=== PATIENT | female | born 1940 | race Hispanic/Latino ===

== ENCOUNTER 2021-02-28 07:39 | Outpatient (CLI) | payer OTHER, SELFPAY ==
--- NOTE | ~2021-02-28 | MM_ITS ---
EXAMINATION: MM screening beth BI w lit HISTORY: Screening mammogram TECHNIQUE: Craniocaudal and mediolateral oblique 3-D tomosynthesis images were obtained and synthetic 2-D images were generated. CAD analysis was submitted and interpreted. COMPARISON: No prior mammogram is available for comparison at this institution. BREAST PARENCHYMAL COMPOSITION: There are scattered areas of fibroglandular density. FINDINGS: There is no evidence of suspicious mass, calcification, or architectural distortion to sugg est malignancy in either breast. There has been no suspicious interval change. IMPRESSION: 1. No mammographic evidence of malignancy. 2. Recommend routine screening mammography in one year. BI-RADS Category 1: Negative Reviewed, dictated and finalized at location A.
--- NOTE | ~2021-02-28 | DEXA_ITS ---
Bone Density Report Name: Lauryn Rosales Age: 80 Sex: Female Ethnicity: Date of : 1940 Indication: postmenopausal; height loss; hysterectomy; Referring Provider: Leda Oropeza Study: Bone densitometry was performed. Exam Date: February 28, 2021 Accession number: [id number] Bone Density: Region BMD T-score Z-score Classification AP Spine (L2, L3) 0.800 -2.3 0.4 Osteopenia Femoral Neck (Left) 0.595 -2.3 0.0 Osteopenia Total Hip (Left) 0.772 -1.4 0.7 Osteopenia Total Hip Bilateral Avg 0.725 -1.8 0.3 Osteopenia Femoral Neck (Right) 0.603 -2.2 0.0 Osteopenia Total Hip (Right) 0.678 -2.2 0.0 Osteopenia World Health Organization criteria for BMD impression classify patients as: Normal (T-score at or above -1.0), Osteopenia (T-score between -1.0 and -2.5), or Osteoporosis (T-score at or below -2.5). 10-year Fracture Risk(1): Major Osteoporotic Fracture 9.7% Hip Fracture 3.0% Reported Risk Factors: [place] (), Neck BMD=0.595, BMI=33.2 (1) FRAX(R) Version 3.08. Fracture probability calculated for an untreated patient. Fracture probability may be lower if the patient has received treatment. Clinical Information Provided by Patient: Has used the following medications: Vitamin D, Calcium Has the following medical conditions: Hysterectomy Patient maximum height was 61 Menopause Age: 49 No regular weight bearing exercise Drinks caffeinated beverages Onset of menses at age 12 Number of children 6 Impression: The patient has low bone mass, based on the Total Spine T-score. The patient has an estimated ten-year risk of hip fracture of 3% and an estimated ten-year risk of major fracture of 9.7%, based on the WHO FRAX algorithm. Discussion: BONE DENSITY IS LOW AT ONE OR MORE SKELETAL SITES. THE PATIENT'S BMD AND CLINICAL RISK FACTORS CONTRIBUTE TO THIS PATIENT'S INCREASED RISK OF FRACTURE. This patient's lowest T-score is low at one or more skeletal sites. It meets the World Health Organization's (WHO) criteria for ?low bone mass? (T-score between -1.0 and -2.5). The patient's 10-year risk of hip fracture as calculated by FRAX exceeds the threshold where pharmacological therapy is recommended by the National Osteoporosis Foundation (NOF). However, all treatment decisions require clinical judgment and consideration of individual patient factors, including patient preferences, comorbidities, previous drug use, risk factors not captured in the FRAX model (e.g., frailty, falls, vitamin D deficiency, increased bone turnover, interval significant decline in bone density) and possible under or overestimation of fracture risk by FRAX. The patient should follow a healthful lifestyle (good nutrition with adequate calcium and vitamin D, and appropriate weight-bearing exercise). Follow-Up: Conside
== END 2021-02-28 07:40 | disposition home or self-care (01) ==
LOC: ANHIMG 07:40
PROVIDERS: PCP Family Medicine; Visit Provider Family Medicine
DX: Z12.31 Encounter for screening mammogram for malignant neoplasm of breast (principal); Z78.0 Asymptomatic menopausal state; M85.88 Other specified disorders of bone density and structure, other site; M85.852 Other specified disorders of bone density and structure, left thigh; M85.851 Other specified disorders of bone density and structure, right thigh
CPT/HCPCS: 77063; 77067; 77080

== ENCOUNTER 2021-03-27 13:20 | Outpatient (CLI) | payer OTHER, SELFPAY ==
--- NOTE | 2021-03-27 13:27 | ECHO_ITS ---
Patient Info Name: Lauryn Garcia Age: 80 years : 1940 Gender: Female Ht: 60 in Wt: 173 lbs BSA: 1.86 m2 HR: 45 bpm BP: 162 / 73 mmHg Technical Quality: Fair Exam Date: 03/27/2021 1:31 PM Exam Location: [facility] Patient Status: Outpatient Admit Date: 03/27/2021 Staff Ordering Physician: Ramses Carballo DO Linseed Cake Trimmer: Heidi Flores RDCS Attending Provider: Ramses Carballo DO Referring Physician: Haris LARIOS; Exam Type: CA echo doppler color flow Study Info Indications R00.1 - Bradycardia, unspecified Complete two-dimensional, color flow and Doppler transthoracic echocardiogram is performed. Summary 1. Complete two-dimensional, color flow and Doppler transthoracic echocardiogram is performed. 2. Left ventricular chamber dimension is normal. 3. Left ventricular systolic function is normal, estimated at 60-65%. 4. There is mildly increased left ventricular wall thickness. 5. The left ventricular diastolic function is grade I diastolic dysfunction. 6. E/e' 16 is elevated. 7. Global longitudinal strain is abnormal at -11.4%. 8. There is mild aortic valve sclerosis. 9. There is trace tricuspid valve regurgitation. 10. No pulmonary hypertension, estimated pulmonary arterial systolic pressure is 28 mmHg. 11. There is small right sided pericardial effusion. Left Ventricle E/e' 16 is elevated. Global longitudinal strain is abnormal at -11.4%. Left ventricular chamber dimension is normal. Left ventricular systolic function is normal, estimated at 60-65%. There is mildly increased left ventricular wall thickness. The left ventricular diastolic function is grade I diastolic dysfunction. Right Ventricle Right ventricular chamber dimension is normal. Right ventricular systolic function is normal. Left Atria Left atrial chamber dimension is normal. Right Atria Right atrial chamber dimension is normal. Aortic Valve The aortic valve is trileaflet. There is mild aortic valve sclerosis. There is no aortic valve stenosis. There is no aortic valve regurgitation. Pulmonic Valve There is no pulmonic regurgitation. Mitral Valve There is no mitral valve stenosis. There is no mitral valve regurgitation. Tricuspid Valve There is trace tricuspid valve regurgitation. No pulmonary hypertension, estimated pulmonary arterial systolic pressure is 28 mmHg. Pericardium/Pleural There is small right sided pericardial effusion. No pericardial tamponade. Inferior Vena Cava Normal inferior vena cava with >50% collapse upon inspiration consistent with normal right atrial pressure, 5 mmHg. Aorta The aortic root size at the sinus of Valsalva is normal. Left Ventricular Outflow Tract Name Value Normal LVOT 2D LVOT Diameter 2.0 cm LVOT Doppler LVOT Peak Gradient 4 mmHg LVOT Mean Gradient 2 mmHg LVOT VTI 25 cm LVOT VTI/AV VTI Ratio 0.9 LVOT Stroke Volume 80 ml LVOT CO 3.6 l/min LVOT C
== END 2021-03-27 13:21 | disposition home or self-care (01) ==
LOC: ANHCARD 13:24
PROVIDERS: PCP Family Medicine; Visit Provider Internal Medicine Cardiovascular Disease
DX: R00.1 Bradycardia, unspecified (principal); I35.1 Nonrheumatic aortic (valve) insufficiency; I31.3 Pericardial effusion (noninflammatory)
CPT/HCPCS: 93306

== ENCOUNTER 2021-10-19 08:52 | Outpatient (CLI) | payer OTHER, SELFPAY ==
--- NOTE | ~2021-10-19 | NM_ITS ---
EXAMINATION: NM niharika stress w perfusion DATE: 10/19/2021 11:17 INDICATION: Dyspnea on exertion. TECHNIQUE: Rest images were obtained following intravenous administration of 10.9 mCi Tc99m tetrofosm in (Myoview). The patient was infused intravenously with Lexiscan (regadenoson). Then, 34.2 mCi Tc99m tetrofosmin (Myoview) was administered intravenously, and stress images were obtained. Data was joselyn nstructed into short axis and horizontal and vertical long axis SPECT images. Gated SPECT images were also obtained. COMPARISON: None. FINDINGS: There is no definite reversible or fixed perfusion abnormality to suggest ischemia or infar ction. There is no segmental wall motion abnormality. Left ventricular ejection fraction measures 6 8%. IMPRESSION: 1. No definite ischemia or infarct. 2. Normal left ventricular ejection fraction measuring 68%. Reviewed, dictated and finalized at location A.
--- NOTE | 2021-10-19 09:46 | EST_ITS ---
Patient Info Name: Lauryn Garcia Age: 81 years : 1940 Gender: Female Ht: 60 in Wt: 165 lbs BSA: 1.81 m2 HR: 46 bpm BP: 141 / 69 mmHg Heart Rhythm: Sinus Rhythm Exam Date: 10/19/2021 9:57 AM Exam Location: [facility] Stress Patient Status: Outpatient Admit Date: 10/19/2021 Staff Ordering Physician: Ramses Carballo DO Attending Provider: Ramses Carballo DO Exercise Technologist: Jessica Agee CT Exam Type: CA stress niharika w NM Study Info Indications R06.00 - Dyspnea, unspecified A regadenoson stress test was performed. Summary 1. 1. Negative lexiscan stress test for ischemic ST changes by ECG criteria. 2. 2. Baseline hypertension. 3. 3. Nuclear scan to follow and will be reported separately. Please correlate with it. 4. 4. Patient informed of the above results. Protocol: Lexiscan Stress ECG Details Stage: REST Duration (min): 1 min : 3 sec HR (bpm): 47 SBP (mmHg): 141 DBP (mmHg): 69 Stage: REST Duration (min): 12 min : 35 sec HR (bpm): 49 SBP (mmHg): 141 DBP (mmHg): 69 Stage: STAGE 1 Duration (min): 1 min : 0 sec HR (bpm): 51 SBP (mmHg): 147 DBP (mmHg): 78 Stage: RECOVERY Duration (min): 1 min : 0 sec HR (bpm): 60 SBP (mmHg): 147 DBP (mmHg): 78 Stage: RECOVERY Duration (min): 2 min : 0 sec HR (bpm): 58 SBP (mmHg): 147 DBP (mmHg): 78 Stage: RECOVERY Duration (min): 3 min : 0 sec HR (bpm): 56 SBP (mmHg): 126 DBP (mmHg): 70 Stage: RECOVERY Duration (min): 3 min : 57 sec HR (bpm): 55 SBP (mmHg): 126 DBP (mmHg): 70 Rest HR: 49 bpm Peak HR: 60 bpm Rest Sys BP: 141 mmHg Peak Sys BP: 147 mmHg Max Pred HR: 139 bpm % Max Pred HR: 43 % Target HR: 118 bpm Max RPP: 8,820 bpm*mmHg Termination Reason: Completed protocol Cardiac Symptoms: Shortness of breath Total Time: 1 min : 0 sec Rest Yanes BP: 69 mmHg Peak Yanes BP: 78 mmHg Total Dose: 0.4 mg Resting ECG Sinus bradycardia, IRBBB, borderline T wave in anterior leads. Stress ECG No ST changes. Arrhythmias None. Report Signatures
== END 2021-10-19 08:53 | disposition home or self-care (01) ==
PROVIDERS: PCP Family Medicine; Visit Provider Internal Medicine Cardiovascular Disease
DX: R06.00 Dyspnea, unspecified (principal)
CPT/HCPCS: 78452; 93017; A9502; J2785

== ENCOUNTER 2022-01-26 07:44 | Outpatient (CLI) | payer OTHER, SELFPAY ==
--- NOTE | 2022-02-16 18:24 | WPDHOMESLEEP ---
Sleep Study - Home Unattended Date of Study: 01/26/22 Ordering Provider: Ramses Carballo DO Interpreting Provider: Jocelynn Nogueira DO Home Sleep Study Type: Apnea Link Air Height: 1.52 m Weight: 79.379 kg Body Mass Index: 34.2 Neck Circumference (inches): 16 [place]: 0 Reason for Sleep Study Daytime hypersomnia Sleep History The patient is an 80-year-old female with arthritis, depression, hypertension, dyslipidemia, glaucoma, type 2 diabetes and history of stroke that a sleep study ordered by her filenet architect for evaluation of sleep apnea. The patient denies awakening from sleep short of breath. She denies awakening at night with heartburn, belching or cough. She frequently snores and is occasionally loud enough that others complain. She occasionally has trouble sleeping when she has a cold. She rarely wakes up gasping for air throughout the night. She frequently has breathing problems at night observed by herself or others. She occasionally sweats excessively at night. She denies having heart palpitations or irregular heartbeats throughout the night. She frequently falls asleep during the day. She denies sleep paralysis, cataplexy and hypnagogic / hypnopompic hallucinations. She denies feeling afraid of going to sleep. She occasionally has nightmares and occasionally remembers her dreams. She denies having thoughts racing through her mind. She denies feeling sad or depressed. She denies having anxiety. She rarely has muscular tension. She denies noticing parts of her body jerk. She denies kicking during the night. She denies having crawling and aching feelings in her legs but occasionally has leg pain during the night. She denies grinding her teeth during sleep but occasionally awakens with morning jaw pain. She denies being bothered by pain during the day and denies being awakened by pain during the night. She denies waking up feeling stiff in the morning. She rarely wakes up with sore achy muscles. She occasionally wakes up with pain in the neck, spine or other joints. She goes to bed at 9:00 p.m. on weekdays and at 10:00 p.m. on the weekends. It takes her 1 hour to fall asleep. She wakes up 3-4 times throughout the night to urinate. It takes her 30 minutes to fall back asleep. He wakes up at 9:00 a.m. on both weekdays and weekends. She typically gets a minimum of 8 hours of sleep per night. She currently lives with her , daughter and granddaughter. She denies consuming any caffeinated beverages within 2 hours of bedtime. She does not engage in any physical exercise before bedtime. She denies reading and watching television before falling asleep. She will take an hour long afternoon nap and she does feel refreshed afterwards. She drinks 1 cup of coffee per day. She denies tobacco, alcohol and recreational drug use. [facility] Past Medical History Medical History Arthritis Depression Dyslipidemia Essential (primary) hypertension Glaucoma History of stroke 06/2019 Shingles Type 2 diabetes mellitus without complications Surgical History Surgical History H/O eye surgery (~12/23/20) History of hysterectomy 1999 History of tubal ligation 1976 Family History Family History Father Hypertension Heart disease Cerebrovascular accident Mother Hypertension Cerebrovascular accident Sibling Diabetes mellitus Hypertension Heart disease Unknown Diabetes mellitus Hypertension Heart disease Thyroid disorder Rheumatoid arthritis Social History Social History Smoking status: Never smoker Alcohol intake: never Substance use: never Substance use type: does not use Additional occupation/education comments: [employer] Gender identity (if verbalized by the p
[2022-02-16 21:54] VITALS: BMI 34.2
--- NOTE | 2022-04-13 15:49 | SLEEP ---
PT SPEAKS ANDORRAN. PT DAUGHTER IS TALKING WITH HER TO TRY TO EXPLAIN TO HER THE IMPORTANCE OF PAP THERAPY.
--- NOTE | 2022-10-05 15:52 | SLEEP ---
per daughter pt does not wish to do further testing
== END 2022-01-27 11:15 | disposition home or self-care (01) ==
PROVIDERS: PCP Family Medicine; Visit Provider Internal Medicine Cardiovascular Disease
DX: G47.10 Hypersomnia, unspecified (principal); G47.33 Obstructive sleep apnea (adult) (pediatric)
CPT/HCPCS: 95806

== ENCOUNTER 2022-02-18 12:06 | Outpatient (CLI) | payer OTHER, SELFPAY ==
[2022-02-18 20:45] LABS: Hemoglobin A1C 6.3 % (<5.7)
== END 2022-02-18 12:07 | disposition home or self-care (01) ==
LOC: ANHGOSHLAB 12:08
PROVIDERS: PCP Family Medicine; Visit Provider Family Medicine
DX: E11.9 Type 2 diabetes mellitus without complications (principal)
CPT/HCPCS: 36415; 83036

== ENCOUNTER 2022-11-01 09:59 | Outpatient (CLI) | payer OTHER, SELFPAY ==
[2022-11-01 14:50] LABS: Erythrocyte Sedimentation Rate 23 mm/hr (0-20)
[2022-11-01 15:48] LABS: Rheumatoid Factor < 12.0 IU/ML (<12)
[2022-11-01 16:23] LABS: CRP < 0.5 mg/dL (<1.0)
== END 2022-11-01 10:00 | disposition home or self-care (01) ==
LOC: ANHGOSHLAB 10:01
PROVIDERS: PCP Family Medicine; Visit Provider Nurse Practitioner Family
DX: R21 Rash and other nonspecific skin eruption (principal); M25.50 Pain in unspecified joint
CPT/HCPCS: 36415; 85652; 86140; 86430

== ENCOUNTER 2022-11-30 08:45 | Outpatient (CLI) | payer OTHER, SELFPAY ==
--- NOTE | 2022-11-30 11:15 | NEURO_ITS ---
Impression: # Complains of pain and numbness in hands. # Bilateral Carpal Tunnel Syndrome, left more than right. # Left ulnar neuropathy across the elbow. # Mildly abnormal Needle/EMG exam in bilateral APB and left 1st DI. # Clinical correlation recommended. Nerve Conduction Studies Anti Sensory Summary Table Stim Site NR Peak (ms) P-T Amp (?V) Site1 Site2 Delta-P (ms) Dist (cm) Darrel (m/s) Left Median Anti Sensory (2-3nd Digit) Wrist 4.1 24.9 Wrist 2-3nd Digit 4.1 14.0 34 Wrist 4.4 23.5 Wrist 2-3nd Digit 4.1 14.0 34 Right Median Anti Sensory (2-3nd Digit) Wrist 3.4 16.1 Wrist 2-3nd Digit 3.4 14.0 41 Wrist 3.9 18.4 Wrist 2-3nd Digit 3.4 14.0 41 Left Radial Anti Sensory (Base 1st Digit) Wrist 2.1 19.2 Wrist Base 1st Digit 2.1 0.0 Right Radial Anti Sensory (Base 1st Digit) Wrist 2.2 30.2 Wrist Base 1st Digit 2.2 0.0 Left Ulnar Anti Sensory (5th Digit) Wrist 2.8 30.5 Wrist 5th Digit 2.8 14.0 50 Right Ulnar Anti Sensory (5th Digit) Wrist 2.4 20.6 Wrist 5th Digit 2.4 14.0 58 Motor Summary Table Stim Site NR Onset (ms) O-P Amp (mV) Site1 Site2 Delta-0 (ms) Dist (cm) Darrel (m/s) Left Median Motor (Abd Poll Brev) Wrist 5.2 1.1 Elbow Wrist 5.1 26.0 51 Elbow 10.3 3.2 Right Median Motor (Abd Poll Brev) Wrist 4.5 2.7 Elbow Wrist 5.0 26.0 52 Elbow 9.5 2.1 Left Ulnar Motor (Abd Dig Minimi) Wrist 2.8 4.4 A Elbow Wrist 6.5 28.0 43 A Elbow 9.3 3.1 B Elbow Wrist 4.1 22.0 54 B Elbow 6.9 3.2 Right Ulnar Motor (Abd Dig Minimi) Wrist 2.8 5.3 A Elbow Wrist 5.1 27.0 53 A Elbow 7.9 3.9 F Wave Studies NR F-Lat (ms) L-R F-Lat (ms) Left Median (Mrkrs) (Abd Poll Brev) 28.87 0.82 Right Median (Mrkrs) (Abd Poll Brev) 28.05 0.82 Left Ulnar (Mrkrs) (Abd Dig Min) 29.79 0.53 Right Ulnar (Mrkrs) (Abd Dig Min) 29.26 0.53 EMG Side Muscle Nerve Root Ins Act Fibs Amp Dur Recrt Comment Right 1stDorInt Ulnar C8-T1 Nml Nml Nml Nml Nml Right Ext Indicis Radial (Post Int) C7-8 Nml Nml Nml Nml Nml Right Ext Digitorum Radial (Post Int) C7-8 Nml Nml Nml Nml Nml Right BrachioRad Radial C5-6 Nml Nml Nml Nml Nml Right PronatorTeres Median C6-7 Nml Nml Nml Nml Nml Right Abd Poll Brev Median C8-T1 Nml Nml Incr >12ms Reduced Left 1stDorInt Ulnar C8-T1 Nml Nml Incr >12ms Reduced Left Ext Indicis Radial (Post Int) C7-8 Nml Nml Nml Nml Nml Left Ext Digitorum Radial (Post Int) C7-8 Nml Nml Nml Nml Nml Left BrachioRad Radial C5-6 Nml Nml Nml Nml Nml Left PronatorTeres Median C6-7 Nml Nml Nml Nml Nml Left Abd Poll Brev Median C8-T1 Nml Nml Incr >12ms Reduced Right Biceps Musculocut C5-6 Nml Nml Nml Nml Nml Right Triceps Radial C6-7-8 Nml Nml Nml Nml Nml Right Deltoid Axillary C5-6 Nml Nml Nml Nml Nml Left Biceps Musculocut C5-6 Nml Nml Nml Nml Nml Left Triceps Radial C6-7-8 Nml Nml Nml Nml Nml Left Deltoid Axillary C5-6 Nml Nml Nml Nml Nml MTDD
== END 2022-11-30 08:46 | disposition home or self-care (01) ==
LOC: ANHNEURO 08:46
PROVIDERS: PCP Family Medicine; Visit Provider Family Medicine
DX: G56.03 Carpal tunnel syndrome, bilateral upper limbs (principal); G56.22 Lesion of ulnar nerve, left upper limb; R94.131 Abnormal electromyogram [EMG]
CPT/HCPCS: 95886; 95911

== ENCOUNTER 2023-01-05 10:42 | Outpatient (CLI) | payer OTHER, SELFPAY | END 2023-01-05 10:43 | disposition home or self-care (01) | LOC: ANHBWCAUD 10:44 | PROVIDERS: PCP Family Medicine; Visit Provider Family Medicine | DX: H90.3 Sensorineural hearing loss, bilateral (principal) | CPT/HCPCS: 92557; 92567 ==

== ENCOUNTER 2023-08-09 14:10 | Outpatient (CLI) | payer OTHER, SELFPAY ==
[2023-08-09 19:16] LABS: Alanine Aminotransferase 15 U/L (6-35); Albumin Level 4.1 g/dL (3.5-5.1); Alkaline Phosphatase 65 U/L (38-126); Anion Gap 3 mmol/L (4-12); Aspartate Amino Transferase 66 U/L (14-36); Bilirubin,Total 0.4 mg/dL (0.2-1.3); Blood Urea Nitrogen 11 mg/dL (7-17); Calcium 9.9 mg/dL (8.4-10.2); Carbon Dioxide 32 mmol/L (22-30); Chloride 101 mmol/L (98-107); Estimated Glomerular Filt Rate > 60; Glucose 98 mg/dL (65-110); Potassium 4.5 mmol/L (3.4-5.0); Sodium 136 mmol/L (137-145)
[2023-08-09 19:23] LABS: Hemoglobin A1C 6.9 % (<5.7)
== END 2023-08-09 14:11 | disposition home or self-care (01) ==
LOC: ANHGOSHLAB 14:11
PROVIDERS: PCP Family Medicine; Visit Provider Family Medicine
DX: E11.9 Type 2 diabetes mellitus without complications (principal); I10 Essential (primary) hypertension
CPT/HCPCS: 36415; 80053; 83036

== ENCOUNTER 2023-09-30 10:55 | Outpatient (CLI) | payer OTHER, SELFPAY ==
[2023-09-30 18:49] LABS: Basophils Absolute Auto 0.1 K/mm3 (0.0-0.1); Basophils Percent Auto 1.4 % (0.2-1.2); Eosinophils Absolute Auto 0.3 K/mm3 (0-0.3); Eosinophils Percent Auto 4.5 % (0-4.4); Hematocrit 28.3 % (37.0-47.0); Hemoglobin 8.9 g/dL (12.0-15.0); Immature Granulocyte Absolute 0.03 K/mm3 (0.00-0.031); Immature Granulocyte Percent A 0.4 % (0-0.5); Lymphocytes Absolute Auto 1.46 K/mm3 (0.9-3.2); Lymphocytes Percent Auto 19.9 % (18.3-44.2); Mean Corpuscular HGB Conc 31.4 g/dl (32-36); Mean Corpuscular Hemoglobin 27.9 pg (26-34); Mean Corpuscular Volume 88.7 fl (80-100); Mean Platelet Volume 10.5 fl (7.4-10.4); Monocytes Absolute Auto 0.5 K/mm3 (0.1-0.6); Monocytes Percent Auto 7.4 % (2.6-8.5); Neutrophils Absolute Auto 4.9 K/mm3 (1.3-6.7); Neutrophils Percent Auto 66.4 % (45.5-73.1); Platelet Count Result 244 k/mm3 (150-375); Red Blood Count 3.19 M/mm3 (4.2-5.4); Red Cell Distribution Width 15.9 % (11.5-14.5); White Blood Count 7.3 K/mm3 (4.5-10.0)
[2023-09-30 19:20] LABS: Alanine Aminotransferase 12 U/L (6-35); Albumin Level 3.9 g/dL (3.5-5.1); Alkaline Phosphatase 66 U/L (38-126); Anion Gap 4 mmol/L (4-12); Aspartate Amino Transferase 39 U/L (14-36); Bilirubin,Total 0.4 mg/dL (0.2-1.3); Blood Urea Nitrogen 16 mg/dL (7-17); Carbon Dioxide 26 mmol/L (22-30); Chloride 103 mmol/L (98-107); Estimated Glomerular Filt Rate 60; Glucose 156 mg/dL (65-110); Potassium 4.4 mmol/L (3.4-5.0); Sodium 133 mmol/L (137-145)
== END 2023-09-30 10:56 | disposition home or self-care (01) ==
LOC: ANHGOSHLAB 10:57
PROVIDERS: PCP Family Medicine; Visit Provider Emergency Medicine
DX: K92.1 Melena (principal)
CPT/HCPCS: 36415; 80053; 85025

== ENCOUNTER 2023-09-30 12:05 | Outpatient (CLI) | payer OTHER, SELFPAY ==
--- NOTE | ~2023-09-30 | XR_ITS ---
XR shoulder RT min 2V DATE: 09/30/2023 12:34 INDICATION: Fall. Right shoulder injury, pain TECHNIQUE: 4 views COMPARISON: None FINDINGS: There is osteopenia. There is prominent thoracic dextroscoliosis. Degenerative changes are noted in the lower cervical spi ne. There is mild degenerative change at the right acromioclavicular joint. No fracture, dislocation, periosteal reaction or bone destruction of the right shoulder. IMPRESSION: No fracture or dislocation of right shoulder Reviewed, dictated and finalized at location B.
== END 2023-09-30 12:06 | disposition home or self-care (01) ==
PROVIDERS: PCP Family Medicine; Visit Provider Emergency Medicine
DX: M25.511 Pain in right shoulder (principal); W19.XXXA Unspecified fall, initial encounter
CPT/HCPCS: 36415; 73030; 80053; 85025

== ENCOUNTER 2023-10-03 14:24 | Observation (INO) | payer OTHER, SELFPAY ==
--- NOTE | ~2023-10-03 | CT_ITS ---
EXAMINATION: CT abdomen pelvis w con DATE: 10/03/2023 16:44 INDICATION: Abdominal pain. TECHNIQUE: Computed tomography (CT) of the abdomen and pelvis was performed with 100 mL Omnipaque 350 intravenous contrast. Automated exposure control and iterative reconstruction technique were employe d. The dose-length product was 623.19 mGy-cm. COMPARISON: None. FINDINGS: The visualized portions of the lung bases demonstrate mild atelectasis. No pleural effusion . Cardiomegaly is noted. No pericardial effusion. The liver and spleen are normal. There are gallston es in the gallbladder, which is normal in size. The pancreas and adrenal glands are normal. There are cysts in the kidneys measuring up to 4.7 cm on the left. There is a 4 mm stone in right kidney. Ther e is a 4 mm stone in left kidney. There is calcified atherosclerosis of the aorta and many of the oth er arteries. There is diverticulosis of the colon without evidence of diverticulitis. The appendix is normal. There are no dilated loops of bowel. There are no pathologically enlarged lymph nodes. There is no free intraperitoneal fluid. There is 17 degrees levoscoliosis of thoracolumbar spine. There is severe cervical and thoracic spondylosis. IMPRESSION: 1. Cholelithiasis. No evidence of acute cholecystitis. 2. Bilateral nonobstructing kidney stones. Reviewed, dictated and finalized at location A.
[2023-10-03 14:26] VITALS: BP 134/45; PULSE 86; RESP 16; TEMP 36.3; O2SAT 98
[2023-10-03 14:46] LABS: Basophils Absolute Auto 0.1 K/mm3 (0.0-0.1); Eosinophils Absolute Auto 0.3 K/mm3 (0-0.3); Eosinophils Percent Auto 3.8 % (0-4.4); Hematocrit 27.9 % (37.0-47.0); Hemoglobin 8.9 g/dL (12.0-15.0); Immature Granulocyte Absolute 0.02 K/mm3 (0.00-0.031); Immature Granulocyte Percent A 0.3 % (0-0.5); Lymphocytes Absolute Auto 1.66 K/mm3 (0.9-3.2); Mean Corpuscular HGB Conc 31.9 g/dl (32-36); Mean Corpuscular Hemoglobin 28.1 pg (26-34); Mean Platelet Volume 9.6 fl (7.4-10.4); Monocytes Absolute Auto 0.5 K/mm3 (0.1-0.6); Monocytes Percent Auto 6.7 % (2.6-8.5); Neutrophils Absolute Auto 5.3 K/mm3 (1.3-6.7); Neutrophils Percent Auto 67.2 % (45.5-73.1); Platelet Count Result 283 k/mm3 (150-375); Red Blood Count 3.17 M/mm3 (4.2-5.4); Red Cell Distribution Width 15.9 % (11.5-14.5); White Blood Count 7.9 K/mm3 (4.5-10.0)
[2023-10-03 14:53] LABS: Alanine Aminotransferase 11 U/L (6-35); Albumin Level 4.2 g/dL (3.5-5.1); Alkaline Phosphatase 67 U/L (38-126); Anion Gap 5 mmol/L (4-12); Aspartate Amino Transferase 18 U/L (14-36); Bilirubin,Total 0.5 mg/dL (0.2-1.3); Blood Urea Nitrogen 13 mg/dL (7-17); Calcium 8.8 mg/dL (8.4-10.2); Carbon Dioxide 25 mmol/L (22-30); Chloride 103 mmol/L (98-107); Estimated Glomerular Filt Rate 60; Glucose 128 mg/dL (65-110); Potassium 3.9 mmol/L (3.4-5.0); Sodium 133 mmol/L (137-145)
--- NOTE | 2023-10-03 15:56 | ED.GENADULT ---
HPI - General Adult General Chief complaint: Recheck/Abnormal Lab/Rx <Bhakti Mackenzie September,N - Last Filed: 10/03/23 16:00> Stated complaint: low hemoglobin <Bhakti Mackenzie September, - Last Filed: 10/03/23 16:00> Time Seen by Provider: 10/03/23 15:56 <Bhakti Mackenzie September,N - Last Filed: 10/03/23 16:00> Focused HPI: Lauryn Garcia is a Urdu speaking 83 y/o female, daughter is here and wants to interpret. Daughter states that Mom vomited up black blood on September 22 and ever since she has felt increased weakness, and now having dark stools. Complains of upper abdominal pain. Her PCP called her today to come to the ED to get checked because her blood work from the showed anemia GENERAL: Well-appearing, well-nourished, and in no acute distress. HEAD: Normocephalic, atraumatic. CHEST: Clear to auscultation. ?No respiratory distress. HEART: Regular rate and rhythm.? NEURO: ?Alert and oriented x3. Patient screened in triage and initial orders placed.? ?Additional care and disposition to be based upon?diagnostic testing and treatment. <Bhakti Mackenzie September, Last Filed: 10/03/23 16:00> Related Data Home medications: Home Medications Medication Instructions Recorded Confirmed dorzolamide 22.3 mg-timolol 6.8 1 drp EACH EYE BID 12/09/20 10/03/23 mg/mL eye drops latanoprost 0.005 % eye drops 1 drp EACH EYE DAILY 12/09/20 10/03/23 atorvastatin 20 mg tablet 20 mg PO QNOON 10/03/23 10/03/23 citalopram 40 mg tablet 40 mg PO QHS 10/03/23 10/03/23 clopidogrel 75 mg tablet 75 mg PO QNOON 10/03/23 10/03/23 <Bhakti Mackenzie September, - Last Filed: 10/03/23 16:00> Allergies/adverse reactions: Allergies Allergy/AdvReac Type Severity Reaction Status Date / Time metformin AdvReac Mild Diarrhea Verified 10/03/23 20:27 <Bhakti Mackenzie September, LATIN TEACHER - Last Filed: 10/03/23 16:00> Review of Systems Review of Systems: CONSTITUTIONAL: Denies fever GASTROINTESTINAL: Reports abdominal pain, nausea, vomiting, and diarrhea. <Evie Conley PA-C - Last Filed: 10/03/23 20:04> All systems reviewed & are unremarkable except as noted in HPI and below <Evie Conley PA-C - Last Filed: 10/03/23 20:04> FOR[facility]LY [facility], [facility] Past Medical History Medical History: Medical History Arthritis Depression Dyslipidemia Essential (primary) hypertension Glaucoma History of stroke (~06/2019) 06/2019 Shingles Type 2 diabetes mellitus without complications <Bhakti Silver, LATIN TEACHER - Last Filed: 10/03/23 16:00> Surgical History Surgical History: Surgical History H/O eye surgery (~12/23/20) History of hysterectomy 1999 History of tubal ligation 1976 <Bhakti Silver, LATIN TEACHER - Last Filed: 10/03/23 16:00> Family History Family History: Family History Father Hypertension Heart disease Cerebrovascular accident Mother Hypertension Cerebrovascular accident Sibling Diabetes mellitus Hypertension Heart disease Unknown Diabetes mellitus Hypertension Heart disease Thyroid disorder Rheumatoid arthritis <Bhakti Silver, LATIN TEACHER - Last Filed: 10/03/23 16:00> Social History Social History: Social History Smoking status: Never smoker Alcohol intake: never Substance use: never Substance use type: does not use Do You Feel Safe in your Home?: Yes Lack of Transportation: No Lack of Food: Never True Current Housing: I Have Housing Concerned About Future Housing: No Difficulty Paying Gas/Electric Bills: No Difficulty Paying for Meds: No Currently Unemployed: No Education: Grade School Difficulty w/ Childcare or Family Care: No Living arrangements: with family Occupation/Education: retired Additional occupation/education comments: [employer] Gender identity (if verbalize
[2023-10-03] MEDS: PANTOPRAZOLE SODIUM IV 40 MG VIAL IV PUSH (16:21)
[2023-10-03 16:46] LABS: Prothrombin Time 13.5 Seconds (11.1-14.7)
[2023-10-03 16:47] LABS: Partial Thromboplastin Time 26.7 Seconds (22.3-36.8)
[2023-10-03 17:46] VITALS: BP 155/66; PULSE 52; RESP 16; O2SAT 100
[2023-10-03 19:17] VITALS: BP 148/60; PULSE 53; RESP 16; O2SAT 99
[2023-10-03] MEDS: SODIUM CHLORIDE 0.9% IV 1,000 ML 100 ML IV CONT (19:38)
[2023-10-03 20:14] LABS: Hematocrit 29.3 % (37.0-47.0)
[2023-10-03 20:16] VITALS: BP 138/53; PULSE 55; O2SAT 99
--- NOTE | 2023-10-03 20:43 | ADMGEN ---
This patient, Lauryn Garcia, was admitted to 3 [facility] Surg Room 317-02. Patient/family oriented to hospital policies and general routines including ID bracelet, bed and alarms, visiting hours, pain management, procedures, bathroom and other care routines, personal items, smoking policy, room service/diet, and visiting hours. Information on how to activate the Rapid Response Team has been discussed. Patient/Family are encouraged to report perceived risks to care and to ask questions if they do not understand what they are told or what they should do.
[2023-10-03 20:45] VITALS: BP 129/62; PULSE 53; RESP 18; TEMP 35.9; O2SAT 100
[2023-10-03 21:17] LABS: Glucose Point of Care 97 mg/dl (65-105)
[2023-10-04] VITALS (8 sets, daily range): BP systolic 120–165; BP diastolic 44–62; PULSE 52–107; RESP 16–20; TEMP 35.7–36.6; O2SAT 96–100
[2023-10-04 02:14] LABS: Hematocrit 29.5 % (37.0-47.0); Hemoglobin 8.9 g/dL (12.0-15.0)
[2023-10-04] MEDS: SODIUM CHLORIDE 0.9% IV 1,000 ML 100 ML IV CONT ×2 (04:20→18:25)
[2023-10-04] MEDS: PANTOPRAZOLE SODIUM IV 40 MG VIAL IV PUSH ×3 (04:20→20:33)
--- NOTE | 2023-10-04 04:28 | PM.IMHP ---
H&P: HPI History of Present Illness Date/Time: 10/04/23 04:28 Chief Complaint: 1. Dark stools 2. Fatigue 3. Epigastric abdominal pains Narrative: Lauryn Garcia is an 83 yo F with a mHx significant for dyslipidemia, Depression, GERD, glaucoma, HTN About 1-2 weeks ago, she experienced an episode of hematemesis; she since then has also been passing dark and tarry stool; she f/u with her PCP who on noticing her Hb drop, advised to pursue an [facility] visit. She attests to an epigastric pain which was localized non-radiating; associated with fatigue, malaise and anorexia. She denies associated diarrhea, constipation, fevers, chills, chest pain, LOC, headaches or dizziness. Her routine medications include Clopidogrel for a CVA She does not smoke/chew tobacco, drink alcohol or consume recreational drugs; her family Hx is not contributory to the PC Work-up findings: CBC shows normocytic anemia with hemoglobin of 8.9.? Metabolic panel without concerning findings.? CT abdomen pelvis without acute findings.? No active bleeding on rectal exam. Lauryn Garcia will be admitted, evaluated and managed for GiB with probable acute blood loss anemia Review of Systems Constitutional: Constitutional: Reports fatigue, Reports lethargy, Denies night sweats and Denies weakness Eyes: Eyes: Denies no additional eye complaints and Denies blurry vision ENT: Denies dysphagia, Denies epistaxis and Denies nasal congestion Cardiovascular: Cardiovascular: Denies leg edema, Denies lightheadedness and Denies palpitations Respiratory: Respiratory: Denies chest congestion, Denies dyspnea and Denies dyspnea on exertion Gastrointestinal: Gastrointestinal: Reports melena, Denies diarrhea, Denies nausea, Denies vomiting and Reports hematemesis Genitourinary: Genitourinary: Denies dysuria, Denies flank pain, Denies urinary hesitancy and Denies urinary urgency Musculoskeletal: Musculoskeletal: Reports no additional musculoskeletal complaints Integumentary/Breasts: Skin/Breast: Denies pruritus, Denies erythema, Denies rash and Denies wounds Neurologic: Denies abnormal gait, Denies confusion, Denies vertigo and Denies headache(s) Psychiatric: Psychiatric: Denies no additional psychiatric complaints, Reports anxiety, Denies behavioral changes and Denies confusion PMFSH Past Medical History Medical History Arthritis Depression Dyslipidemia Essential (primary) hypertension Glaucoma History of stroke (~06/2019) 06/2019 Shingles Type 2 diabetes mellitus without complications Surgical History Surgical History H/O eye surgery (~12/23/20) History of hysterectomy 1999 History of tubal ligation 1976 Family History Family History Father Hypertension Heart disease Cerebrovascular accident Mother Hypertension Cerebrovascular accident Sibling Diabetes mellitus Hypertension Heart disease Unknown Diabetes mellitus Hypertension Heart disease Thyroid disorder Rheumatoid arthritis Social History Social History Smoking status: Never smoker Alcohol intake: never Substance use: never Substance use type: does not use Do You Feel Safe in your Home?: Yes Lack of Transportation: No Lack of Food: Never True Current Housing: I Have Housing Concerned About Future Housing: No Difficulty Paying Gas/Electric Bills: No Difficulty Paying for Meds: No Currently Unemployed: No Education: Grade School Difficulty w/ Childcare or Family Care: No Living arrangements: with family Occupation/Education: retired 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
[2023-10-04 07:25] LABS: Glucose Point of Care 101 mg/dl (65-105)
[2023-10-04 07:35] LABS: Basophils Absolute Auto 0.1 K/mm3 (0.0-0.1); Basophils Percent Auto 1.1 % (0.2-1.2); Eosinophils Absolute Auto 0.4 K/mm3 (0-0.3); Eosinophils Percent Auto 4.7 % (0-4.4); Hematocrit 27.1 % (37.0-47.0); Hemoglobin 8.3 g/dL (12.0-15.0); Immature Granulocyte Absolute 0.02 K/mm3 (0.00-0.031); Immature Granulocyte Percent A 0.3 % (0-0.5); Lymphocytes Absolute Auto 1.84 K/mm3 (0.9-3.2); Mean Corpuscular HGB Conc 30.6 g/dl (32-36); Mean Corpuscular Hemoglobin 26.9 pg (26-34); Mean Platelet Volume 9.1 fl (7.4-10.4); Monocytes Absolute Auto 0.6 K/mm3 (0.1-0.6); Monocytes Percent Auto 8.1 % (2.6-8.5); Neutrophils Absolute Auto 4.5 K/mm3 (1.3-6.7); Neutrophils Percent Auto 60.8 % (45.5-73.1); Platelet Count Result 253 k/mm3 (150-375); Red Blood Count 3.08 M/mm3 (4.2-5.4); Red Cell Distribution Width 15.7 % (11.5-14.5); White Blood Count 7.4 K/mm3 (4.5-10.0)
[2023-10-04 07:45] LABS: Alanine Aminotransferase 10 U/L (6-35); Albumin Level 3.6 g/dL (3.5-5.1); Alkaline Phosphatase 51 U/L (38-126); Anion Gap 3 mmol/L (4-12); Aspartate Amino Transferase 16 U/L (14-36); Bilirubin,Total 0.6 mg/dL (0.2-1.3); Blood Urea Nitrogen 10 mg/dL (7-17); Calcium 9.1 mg/dL (8.4-10.2); Carbon Dioxide 26 mmol/L (22-30); Chloride 107 mmol/L (98-107); Estimated Glomerular Filt Rate 60; Glucose 96 mg/dL (65-110); Potassium 4.9 mmol/L (3.4-5.0); Sodium 136 mmol/L (137-145)
--- NOTE | 2023-10-04 09:08 | WPDGICN ---
Assessment and Plan Assessment and plan (1) Acute GI bleeding: Code(s): K92.2 - Gastrointestinal hemorrhage, unspecified Status: Acute (2) Anemia: Qualifiers: Anemia type: unspecified type Qualified Code(s): D64.9 - Anemia, unspecified Code(s): D64.9 - Anemia, unspecified Status: Acute (3) Melena: Code(s): K92.1 - Melena Status: Acute (4) Epigastric pain: Code(s): R10.13 - Epigastric pain Status: Acute Plan 1) ABLA/upper GI bleed/melena/epigastric pain: Patient with a Hx of CVA on Plavix. Patient seen at PCP 09/29/2023 with complaints of GI issues that started on September 22 an hour after dinner, at that time she was having black emesis and blood in her stool. PCP started the patient on Protonix and famotidine and ordered labs showed Hgb at 9 and on admission Hgb was stable at 9 and INR 1.0. Most recent labs showed Hgb 8.3, Hct 27, MCV 88 and platelets 253. Patient admits to dark stools, fatigue and epigastric pain. CT showed gallstones but was o/w unremarkable. Patient denies frequent NSAID use. Hold anticoagulants Care with NSAID's and aspirin Keep patient NPO Continue PPI EGD today The patients follow up office visit will be determined at time of endoscopy. GI Consult Note Consult date/time: 10/04/23 09:08 Reason for consult: GI bleed HPI: Lauryn Garcia is a 83 year old female HLD, depression, GERD, glaucoma, HTN, arthritis, hysterectomy, tubal ligation and Hx of CVA. She presented to the ER with complaints of dark stools, fatigue and epigastric pain. GI was consulted for GI bleed. Patient was accompanied by her daughter Dalila throughout the entire visit who also served as interpretor. Patient was seen by her PCP 09/29/2023 for GI upset and vomiting that occurred one hour after eating dinner on the . At that time she had a decreased appetite,black colored emesis x 2 episodes and dark stools. She also admits to constipation and straining with BM's. PCP started the patient on Protonix 40 mg daily x 4 weeks and famotidine 40 mg daily. Labs ordered by PCP on 09/29/2023 showed anemia with Hgb 9. Patient then presented to the ER for persistent symptoms. On admission Hgb was stable at 8.9. Patient admits to epigastric tenderness with palpation. denies any nausea or vomiting since admission. With the use of MiraLax daily she is having formed non urgent bowel movements without straining but have been black in color recently. She denies bloating, odynophagia, dysphagia, reflux, regurgitation, early satiety, unexplained weight loss, diarrhea, or hematochezia. ENDOSCOPY HISTORY: No prior EGD or colonoscopy Hx. IMAGING: CT abd/pelvis w/contrast 10/03/2023 IMPRESSION: 1. Cholelithiasis. No evidence of acute cholecystitis. 2. Bilateral nonobstructing kidney stones Review of Systems Constitutional: Constitutional: Reports as per HPI, Reports fatigue and Reports lethargy ENT: Reports as per HPI Cardiovascular: Cardiovascular: Reports as per HPI, Denies chest pain and Denies dyspnea Respiratory: Respiratory: Denies cough and Denies dyspnea Gastrointestinal: Gastrointestinal: Reports as per HPI Genitourinary: Genitourinary: Reports no additional female genitourinary complaints Musculoskeletal: Musculoskeletal: Reports no additional musculoskeletal complaints Integumentary/Breasts: Skin/Breast: Reports system reviewed and no additional complaints, except as docu Psychiatric: Psychiatric: Reports no additional psychiatric complaints Endocrine: Endocrine: Reports no additional endocrine complaints Hematologic/Lymphatic: Hematologic/Lymphatic: Reports no additional hematologic/lymphatic complaints [facility] Past Medical History Medical History Arthritis Depression Dyslipidemia Essential (primary) hypertension Glaucoma Hist
[2023-10-04] MEDS: hydroCHLOROthiazide 25 MG TABLET PO (09:21)
[2023-10-04] MEDS: lisinopriL 20 MG TABLET PO (09:21)
[2023-10-04] MEDS: DORZOLAMIDE/TIMOLOL OPHTH SOL 10 ML BOTTLE 1 DROP EACH EYE ×2 (09:22→20:35)
[2023-10-04 11:40] LABS: Glucose Point of Care 118 mg/dl (65-105)
--- NOTE | 2023-10-04 11:48 | PM.EVENT ---
Event Note Event Note Event Note: Patient was seen by previous provider same day, agreed with providers current plan patient to have EGD today we will continue to hold her Plavix until GIB ruled out. Follow-up assessment patient in no acute distress denied any nausea, vomiting, abdominal pain or blood in stool at this time. If GIB ruled out will need to resume patient's Plavix patient has history of CVA, HGB 8.3 on morning labs from admission of 8.9 and previous of 12.3. I will add an iron panel. Patient is Icelandic speaking and daughter is at bedside to translate per their request.
[2023-10-04 13:34] LABS: Hematocrit 28.6 % (37.0-47.0); Hemoglobin 8.5 g/dL (12.0-15.0)
[2023-10-04] MEDS: LACTATED RINGERS 1,000 ML 150 ML IV CONT (13:52)
--- NOTE | 2023-10-04 14:08 | WPDANESEPPF ---
Anes - Initial Pre Proc Eval Procedure: Operation Date: 10/04/23 15:00 Proposed Procedures p Esophagogastroduodenoscopy - Terry Payne MD Date/Time: 10/04/23 14:08 Surgeon: Monroe Collazo MD Pre Op Diagnosis: GI Bleed Patient Data Age: 83 Gender: F Height: Weight: 81.1 kg Last Vital Signs Temp 98 F 10/04/23 13:54 Pulse 107 H 10/04/23 13:54 Resp 16 10/04/23 13:54 BP 126/49 L 10/04/23 13:54 Pulse Ox 99 10/04/23 13:54 O2 Del Method Room Air 10/04/23 13:54 Allergies Allergy/AdvReac Type Severity Reaction Status Date / Time metformin AdvReac Mild Diarrhea Verified 10/04/23 13:53 Home Medications Medication Instructions Recorded Confirmed Type dorzolamide 22.3 mg-timolol 6.8 1 drp EACH EYE BID 12/09/20 10/03/23 History mg/mL eye drops latanoprost 0.005 % eye drops 1 drp EACH EYE DAILY 12/09/20 10/03/23 History blood-glucose meter (OneTouch #1 ea 12/15/20 10/03/23 Rx Ultra2 Meter) lisinopril 20 1 tablet PO DAILY #90 tabs 04/29/23 10/03/23 Rx mg-hydrochlorothiazide 25 mg tablet glimepiride 1 mg tablet 1 mg PO QAM #90 tabs 08/11/23 10/03/23 Rx blood sugar diagnostic (OneTouch #100 ea 09/21/23 10/03/23 Rx Ultra Test strips) lancets 33 gauge (CareTouch Twist #100 ea 09/27/23 10/03/23 Rx Lancet) famotidine 40 mg tablet (Pepcid) 40 mg PO QHS #30 tabs 09/29/23 10/03/23 Rx pantoprazole 40 mg tablet,delayed 40 mg PO QAM 4 weeks #28 tabs 09/29/23 10/03/23 Rx release atorvastatin 20 mg tablet 20 mg PO QNOON 10/03/23 10/03/23 History citalopram 40 mg tablet 40 mg PO QHS 10/03/23 10/03/23 History clopidogrel 75 mg tablet 75 mg PO QNOON 10/03/23 10/03/23 History Laboratory Tests 10/03/23 10/03/23 10/03/23 14:31 16:18 19:35 WBC 7.9 K/mm3 (4.5-10.0) RBC 3.17 L M/mm3 (4.2-5.4) Hgb 8.9 L g/dL 9.0 L g/dL (12.0-15.0) (12.0-15.0) Hct 27.9 L % 29.3 L % (37.0-47.0) (37.0-47.0) MCV 88.0 fl (80-100) MCH 28.1 pg (26-34) MCHC 31.9 L g/dl (32-36) RDW 15.9 H % (11.5-14.5) Plt Count 283 k/mm3 (150-375) MPV 9.6 fl (7.4-10.4) Immature Gran % (Auto) 0.3 % (0-0.5) Neut % (Auto) 67.2 % (45.5-73.1) Lymph % (Auto) 21.0 % (18.3-44.2) [place] % (Auto) 6.7 % (2.6-8.5) Eos % (Auto) 3.8 % (0-4.4) Baso % (Auto) 1.0 % (0.2-1.2) Lymph # (Auto) 1.66 K/mm3 (0.9-3.2) [place] # (Auto) 0.5 K/mm3 (0.1-0.6) Eos # (Auto) 0.3 K/mm3 (0-0.3) Baso # (Auto) 0.1 K/mm3 (0.0-0.1) Abs Immat Gran (auto) 0.02 K/mm3 (0.00-0.031) Absolute Neuts (auto) 5.3 K/mm3 (1.3-6.7) Absolute Nucleated RBC 0.000 K/mm3 (0.0-0.012) Nucleated RBC % 0.0 % (0.0-0.2) PT 13.5 Seconds (11.1-14.7) INR 1.0 APTT 26.7 Seconds (22.3-36.8) Sodium 133 L mmol/L (137-145) Potassium 3.9 mmol/L (3.4-5.0) Chloride 103 mmol/L (98-107) Carbon Dioxide 25 mmol/L (22-30) Anion Gap 5 mmol/L (4-12) BUN 13 mg/dL (7-17) Creatinine 0.90 mg/dL (0.7-1.0) Estim Creat Clear Calc Not Reportable Estimated GFR 60 (59 - ) Glucose 128 H mg/dL (65-110) POC Capillary Glucose Calcium 8.8 mg/dL (8.4-10.2) Total Bilirubin 0.5 mg/dL (0.2-1.3) AST 18 U/L (14-36) ALT 11 U/L (6-35) Alkaline Phosphatase 67 U/L (38-126) Total Protein 7.0 g/dL (6.3-8.2) Albumin 4.2 g/dL (3.5-5.1) 10/03/23 10/04/23 10/04/23 20:51 02:08 07:19 WBC RBC Hgb 8.9 L g/dL (12.0-15.0) Hct 29.5 L % (37.0-47.0) MCV MCH MCHC RDW Plt Count MPV
--- NOTE | 2023-10-04 15:52 | SUR.PHASEII ---
Dr. Elizabeth notified of positive H. pylori test.
[2023-10-04 16:47] LABS: Glucose Point of Care 74 mg/dl (65-105)
[2023-10-04 19:49] LABS: Glucose Point of Care 79 mg/dl (65-105)
[2023-10-04] MEDS: CLARITHROMYCIN 500 MG TABLET PO (20:28)
[2023-10-04] MEDS: AMOXICILLIN 500 MG CAPSULE 1000 MG PO (20:28)
[2023-10-04] MEDS: CITALOPRAM HYDROBROMIDE 20 MG TABLET 40 MG PO (20:28)
[2023-10-04] MEDS: FAMOTIDINE 20 MG TABLET 40 MG PO (20:28)
[2023-10-05 06:00] VITALS: BP 110/38; PULSE 54; RESP 16; TEMP 36.4; O2SAT 96
[2023-10-05 06:05] LABS: Basophils Absolute Auto 0.1 K/mm3 (0.0-0.1); Eosinophils Absolute Auto 0.3 K/mm3 (0-0.3); Eosinophils Percent Auto 4.5 % (0-4.4); Hematocrit 25.6 % (37.0-47.0); Immature Granulocyte Absolute 0.01 K/mm3 (0.00-0.031); Immature Granulocyte Percent A 0.1 % (0-0.5); Lymphocytes Absolute Auto 1.46 K/mm3 (0.9-3.2); Lymphocytes Percent Auto 21.4 % (18.3-44.2); Mean Corpuscular HGB Conc 31.3 g/dl (32-36); Mean Corpuscular Hemoglobin 27.4 pg (26-34); Mean Corpuscular Volume 87.7 fl (80-100); Mean Platelet Volume 9.6 fl (7.4-10.4); Monocytes Absolute Auto 0.6 K/mm3 (0.1-0.6); Monocytes Percent Auto 8.2 % (2.6-8.5); Neutrophils Absolute Auto 4.4 K/mm3 (1.3-6.7); Neutrophils Percent Auto 64.8 % (45.5-73.1); Platelet Count Result 246 k/mm3 (150-375); Red Blood Count 2.92 M/mm3 (4.2-5.4); Red Cell Distribution Width 15.6 % (11.5-14.5); White Blood Count 6.8 K/mm3 (4.5-10.0)
[2023-10-05 06:28] LABS: Alanine Aminotransferase 11 U/L (6-35); Albumin Level 3.5 g/dL (3.5-5.1); Alkaline Phosphatase 53 U/L (38-126); Anion Gap 4 mmol/L (4-12); Aspartate Amino Transferase 18 U/L (14-36); Bilirubin,Total 0.4 mg/dL (0.2-1.3); Blood Urea Nitrogen 15 mg/dL (7-17); Carbon Dioxide 25 mmol/L (22-30); Chloride 106 mmol/L (98-107); Estimated Glomerular Filt Rate 53; Glucose 88 mg/dL (65-110); Potassium 3.9 mmol/L (3.4-5.0); Sodium 135 mmol/L (137-145)
[2023-10-05 07:40] LABS: Iron 14 ug/dL (37-170)
[2023-10-05 07:40] LABS: Glucose Point of Care 106 mg/dl (65-105)
[2023-10-05 07:50] LABS: Percent Iron Saturation 4 % (20-50)
[2023-10-05 08:36] VITALS: PULSE 62; O2SAT 96
[2023-10-05] MEDS: hydroCHLOROthiazide 25 MG TABLET PO (08:36)
[2023-10-05] MEDS: CLARITHROMYCIN 500 MG TABLET PO (08:36)
[2023-10-05] MEDS: PANTOPRAZOLE SODIUM IV 40 MG VIAL IV PUSH (08:36)
[2023-10-05] MEDS: AMOXICILLIN 500 MG CAPSULE 1000 MG PO (08:36)
[2023-10-05] MEDS: lisinopriL 20 MG TABLET PO (08:37)
[2023-10-05] MEDS: DORZOLAMIDE/TIMOLOL OPHTH SOL 10 ML BOTTLE 1 DROP EACH EYE (08:37)
--- NOTE | 2023-10-05 08:49 | P.PNAN_ITS ---
Anes - Prog Note Post-Op Date/Time: 10/05/23 08:49 Vital Signs: Last Vital Signs Temp 36.4 C 10/05/23 06:00 Pulse 54 L 10/05/23 06:00 Resp 16 10/05/23 06:00 BP 110/38 L 10/05/23 06:00 Pulse Ox 96 10/05/23 06:00 O2 Del Method Room Air 10/04/23 15:17 Pain Score (VAS): 0 I/O: Intake & Output 10/04/23 10/05/23 10/05/23 23:59 07:59 15:59 Intake Total 240 550 240 Balance 240 550 240 Laboratory Tests 10/05/23 05:46 10/05/23 05:46 10/04/23 10/04/23 10/04/23 11:34 13:28 16:44 WBC RBC Hgb 8.5 L Hct 28.6 L MCV MCH MCHC RDW Plt Count MPV Immature Gran % (Auto) Neut % (Auto) Lymph % (Auto) [place] % (Auto) Eos % (Auto) Baso % (Auto) Lymph # (Auto) [place] # (Auto) Eos # (Auto) Baso # (Auto) Abs Immat Gran (auto) Absolute Neuts (auto) Absolute Nucleated RBC Nucleated RBC % Sodium Potassium Chloride Carbon Dioxide Anion Gap BUN Creatinine Estim Creat Clear Calc Estimated GFR Glucose POC Capillary Glucose 118 H 74 Calcium Iron TIBC % Saturation Total Bilirubin AST ALT Alkaline Phosphatase Total Protein Albumin 10/04/23 10/05/23 10/05/23 19:34 05:46 07:32 WBC 6.8 RBC 2.92 L Hgb 8.0 L Hct 25.6 L MCV 87.7 MCH 27.4 MCHC 31.3 L RDW 15.6 H Plt Count 246 MPV 9.6 Immature Gran % (Auto) 0.1 Neut % (Auto) 64.8 Lymph % (Auto) 21.4 [place] % (Auto) 8.2 Eos % (Auto) 4.5 H Baso % (Auto) 1.0 Lymph # (Auto) 1.46 [place] # (Auto) 0.6 Eos # (Auto) 0.3 Baso # (Auto) 0.1 Abs Immat Gran (auto) 0.01 Absolute Neuts (auto) 4.4 Absolute Nucleated RBC 0.000 Nucleated RBC % 0.0 Sodium 135 L Potassium 3.9 Chloride 106 Carbon Dioxide 25 Anion Gap 4 BUN 15 D Creatinine 1.00 Estim Creat Clear Calc Not Reportable Estimated GFR 53 L Glucose 88 POC Capillary Glucose 79 106 H Calcium 9.0 Iron 14 L TIBC 377 % Saturation Pending Total Bilirubin 0.4 AST 18 ALT 11 Alkaline Phosphatase 53 Total Protein 6.0 L Albumin 3.5 Post-procedural complaints: none Patient Feedback: Patient satisfied with anesthetic care. pt's granddaughter at bedside to interpret. pt up in a chair, able to eat breakfast, she has no complaints about anesthesia, said it was the best nap ever.
--- NOTE | 2023-10-05 09:49 | PM.IMPN ---
Progress Note: A&P Assessment and Plan (1) Acute GI bleeding: Code(s): K92.2 - Gastrointestinal hemorrhage, unspecified Status: Acute Assessment and Plan: gastritis per egd REPORT -h pylori studies pending (2) Anemia: Qualifiers: Anemia type: unspecified type Qualified Code(s): D64.9 - Anemia, unspecified Code(s): D64.9 - Anemia, unspecified Status: Acute Assessment and Plan: RICHARD - iron studies completed (3) Melena: Code(s): K92.1 - Melena Status: Acute (4) Gastritis: Code(s): K29.70 - Gastritis, unspecified, without bleeding Status: Acute Assessment and Plan: per egd - hpylori studies pending Plan Acute and principal conditions 1. Anemia; acute blood loss 2. GIB Rx GI consulted PPI; NPO; IVFs Hb q8h Chronic and stable conditions. 1. GERD 2. Hypertension. 3. Glaucoma 4. NIDDM 5. Recurrent depression. 6. Dyslipidemia. 7. CVA. On Statin, Plavix (hold); 8. OAB Will resume home medications Code status. Full Nutrition.NPO VTE prophylaxis. SCDs Time Spent With Patient Time with patient: 15 - 25 minutes Subjective Date/time seen: 10/05/23 09:49 Review of Systems Constitutional: Constitutional: Reports fatigue, Denies headache(s), Reports lethargy, Denies night sweats and Denies weakness Eyes: Eyes: Denies no additional eye complaints and Denies blurry vision ENT: Denies dysphagia, Denies vertigo, Denies headache(s), Denies epistaxis and Denies nasal congestion Cardiovascular: Cardiovascular: Denies leg edema, Denies lightheadedness, Denies palpitations, Denies dyspnea and Denies dyspnea on exertion Respiratory: Respiratory: Denies chest congestion, Denies dyspnea and Denies dyspnea on exertion Gastrointestinal: Gastrointestinal: Reports melena, Denies dysphagia, Denies diarrhea, Denies nausea, Denies vomiting and Reports hematemesis Genitourinary: Genitourinary: Denies dysuria, Denies flank pain, Denies urinary hesitancy and Denies urinary urgency Musculoskeletal: Musculoskeletal: Reports no additional musculoskeletal complaints and Denies abnormal gait Integumentary/Breasts: Skin/Breast: Denies pruritus, Denies erythema, Denies rash and Denies wounds Neurologic: Denies abnormal gait, Denies behavioral changes, Denies confusion, Denies vertigo, Denies headache(s) and Denies weakness Psychiatric: Psychiatric: Denies no additional psychiatric complaints, Reports anxiety, Denies behavioral changes and Denies confusion Endocrine: Endocrine: Reports fatigue and Denies palpitations Exam Const: General: No no acute distress, in distress or confusion Orientation/consciousness: No confusion HENMT: Mouth: Yes moist mucous membranes and No dry mucous membranes Eyes: Sclera: sclerae normal Pupils: Equal, round and reactive pupils present Neck: Neck: supple Thyroid: thyroid normal Resp: Auscultation: clear to auscultation bilaterally, no crackles, no rales and no rhonchi Cardio: Rhythm: regular rhythm Skin: General skin exam: normal color, No lesion and No rashes Lesions: no lesions noted Rashes: no rashes noted Neuro: General: gait normal, No deep tendon reflexes 2+ bilaterally and No confusion Cranial nerves: Yes Equal, round and reactive pupils present Speech: normal speech Motor exam (neuro): 5/5 motor strength present throughout and Normal motor muscle tone present throughout Extrem: General: normal to inspection, normal exam except as noted, no edema and no pedal edema Psych: Mental Status: mental status grossly normal Affect: Anxious affect present Objective Data Vital Signs Vital Signs: Vital Signs - 24 hr 10/04/23 13:54 10/04/23 14:57 10/04/23 15:07 Temperature 98 F Pulse Rate 107 H 52 L 53 L Respiratory Rate 16 18 16 Blood Pressure 126/49 L 154/46 H 120/49 L Pulse Oximetry 99 100 100 Oxygen Delivery Room Air Room Air Room Air 10/04/23 15:17 10/04/23 15:44 10/04/23
[2023-10-05 11:24] LABS: Glucose Point of Care 92 mg/dl (65-105)
[2023-10-05] MEDS: ATORVASTATIN 20 MG TABLET PO (11:54)
--- NOTE | 2023-10-05 13:21 | PM.DS ---
DS: Admitting Diagnosis Discharge Date 10/04 Admitting Diagnosis blood in stool DS: Discharge Diagnosis Discharge Diagnosis (1) Acute GI bleeding: Code(s): K92.2 - Gastrointestinal hemorrhage, unspecified Status: Acute Assessment and Plan: gastritis per egd REPORT -h pylori studies pending (2) Anemia: Qualifiers: Anemia type: unspecified type Qualified Code(s): D64.9 - Anemia, unspecified Code(s): D64.9 - Anemia, unspecified Status: Acute Assessment and Plan: RICHARD - iron studies completed (3) Melena: Code(s): K92.1 - Melena Status: Acute (4) Gastritis: Code(s): K29.70 - Gastritis, unspecified, without bleeding Status: Acute Assessment and Plan: per egd - hpylori studies pending Plan Acute and principal conditions 1. Anemia; acute blood loss 2. GIB Rx GI consulted PPI; NPO; IVFs Hb q8h Chronic and stable conditions. 1. GERD 2. Hypertension. 3. Glaucoma 4. NIDDM 5. Recurrent depression. 6. Dyslipidemia. 7. CVA. On Statin, Plavix (hold); 8. OAB Will resume home medications Code status. Full Nutrition.NPO VTE prophylaxis. SCDs DS: Summary Hospital Course Hospital Course: She is originally from [place] and only speaks Yakut. She has a cardgiver/friend who helps her at home. She says that Mother's day had coffee ground emesis x2 followed by 2 days of dark tarry stool, she has been feeling lightheaded and finally went to see PCP who ordered blood work and found to have new anemia (at baseline near 13), never had GIB, no previous scopes. Admitted here with UGIB and symptomatic anemia. Had EGD Status at Discharge Functional status at discharge: independent ambulation Overall status at discharge: patient is back to baseline Time Spent with Patient Time attestation: Total time spent providing and/or coordinating discharge services: Time spent: Less than 30 minutes Exam Const: General: No no acute distress, in distress or confusion Orientation/consciousness: No confusion HENMT: Mouth: Yes moist mucous membranes and No dry mucous membranes Eyes: Sclera: sclerae normal Pupils: Equal, round and reactive pupils present Neck: Neck: supple Thyroid: thyroid normal Resp: Auscultation: clear to auscultation bilaterally, no crackles, no rales and no rhonchi Cardio: Rhythm: regular rhythm Skin: General skin exam: normal color, No lesion and No rashes Lesions: no lesions noted Rashes: no rashes noted Neuro: General: gait normal, No deep tendon reflexes 2+ bilaterally and No confusion Cranial nerves: Yes Equal, round and reactive pupils present Speech: normal speech Motor exam (neuro): 5/5 motor strength present throughout and Normal motor muscle tone present throughout Extrem: General: normal to inspection, normal exam except as noted, no edema and no pedal edema Psych: Mental Status: mental status grossly normal Affect: Anxious affect present DS: Data Data Completed and Pending Completed studies during hospitalization: EGD, abd CT Pending studies at discharge: Pending at discharge H pylori pending Labs on day of discharge: Labs from last 24 hours 10/05/23 10/05/23 10/05/23 11:20 07:32 05:46 WBC 6.8 RBC 2.92 L Hgb 8.0 L Hct 25.6 L MCV 87.7 MCH 27.4 MCHC 31.3 L RDW 15.6 H Plt Count 246 MPV 9.6 Immature Gran % (Auto) 0.1 Neut % (Auto) 64.8 Lymph % (Auto) 21.4 [place] % (Auto) 8.2 Eos % (Auto) 4.5 H Baso % (Auto) 1.0 Lymph # (Auto) 1.46 [place] # (Auto) 0.6 Eos # (Auto) 0.3 Baso # (Auto) 0.1 Abs Immat Gran (auto) 0.01 Absolute Neuts (auto) 4.4 Absolute Nucleated RBC 0.000 Nucleated RBC % 0.0 Sodium 135 L Potassium 3.9 Chloride 106 Carbon Dioxide 25 Anion Gap 4 BUN 15 D Creatinine 1.00 Estim Creat Clear Calc Not Reportable Estimated GFR 53 L Glucose 88 POC Capillary Glucose
[2023-10-05 13:51] VITALS: BP 139/45; PULSE 64; RESP 16; TEMP 36.5; O2SAT 97
--- NOTE | 2023-10-05 14:12 | WPDGIPROGNO ---
Progress Note: A&P Assessment and Plan (1) Acute GI bleeding: Code(s): K92.2 - Gastrointestinal hemorrhage, unspecified Status: Acute Assessment and Plan: had gastric ulcers (2) Melena: Code(s): K92.1 - Melena Status: Acute Assessment and Plan: resolved (3) Acute H. pylori gastric ulcer: Code(s): K25.3 - Acute gastric ulcer without hemorrhage or perforation; B96.81 - Helicobacter pylori [H. pylori] as the cause of diseases classified elsewhere Status: Acute Assessment and Plan: family aware of result complete 2 weeks of triple therapy then can follow-up office in 4 weeks (4) Epigastric pain: Code(s): R10.13 - Epigastric pain Status: Acute Subjective Date/time seen: 10/05/23 14:12 Interval history: egd with non bleeding gastric ulcers, Radha test + c/w H pylori no more bleeding and she is going home now findings discussed with daughter Review of Systems Review of Systems: All systems reviewed & are unremarkable except as noted in HPI and below Exam Const: General: comfortable and no acute distress HENMT: Face/Nose/Sinus: Normal nares present Eyes: General: appearance normal, both eyes and all related structures Neck: Neck: no JVD Resp: Auscultation: clear to auscultation bilaterally Cardio: Rate: regular rate Rhythm: regular rhythm GI: Inspection: non-distended GI Palp: Yes Soft to palpation Skin: General skin exam: normal color Neuro: General: gait normal Speech: normal speech Extrem: General: normal to inspection Psych: Mental Status: mental status grossly normal Objective Data Vital Signs Vital Signs: Vital Signs - 24 hr 10/04/23 14:57 10/04/23 15:07 10/04/23 15:17 Temperature Pulse Rate 52 L 53 L 53 L Respiratory Rate 18 16 18 Blood Pressure 154/46 H 120/49 L 120/49 L Pulse Oximetry 100 100 100 Oxygen Delivery Room Air Room Air Room Air 10/04/23 15:44 10/04/23 20:42 10/05/23 06:00 Temperature 96.2 F L 97.1 F L 97.6 F Pulse Rate 53 L 52 L 54 L Respiratory Rate 16 16 16 Blood Pressure 165/62 H 136/47 L 110/38 L Pulse Oximetry 100 97 96 Oxygen Delivery 10/05/23 08:36 10/05/23 13:51 Temperature 97.7 F Pulse Rate 62 64 Respiratory Rate 16 Blood Pressure 139/45 L Pulse Oximetry 96 97 Oxygen Delivery Room Air Intake/Output Intake/Output: Intake & Output 10/02/23 10/03/23 10/04/23 10/05/23 23:59 23:59 23:59 23:59 Intake Total 2740 1030 Balance 2740 1030 Meds/Results Radiology Results: ITS Impressions Abdomen/Pelvis CT 10/03/23 16:44 IMPRESSION: 1. Cholelithiasis. No evidence of acute cholecystitis. 2. Bilateral nonobstructing kidney stones. Labs Labs: Laboratory Results - last 24 hr 10/04/23 10/04/23 10/05/23 16:44 19:34 05:46 WBC 6.8 RBC 2.92 L Hgb 8.0 L Hct 25.6 L MCV 87.7 MCH 27.4 MCHC 31.3 L RDW 15.6 H Plt Count 246 MPV 9.6 Immature Gran % (Auto) 0.1 Neut % (Auto) 64.8 Lymph % (Auto) 21.4 [place] % (Auto) 8.2 Eos % (Auto) 4.5 H Baso % (Auto) 1.0 Lymph # (Auto) 1.46 [place] # (Auto) 0.6 Eos # (Auto) 0.3 Baso # (Auto) 0.1 Abs Immat Gran (auto) 0.01 Absolute Neuts (auto) 4.4 Absolute Nucleated RBC 0.000 Nucleated RBC % 0.0 Sodium 135 L Potassium 3.9 Chloride 106 Carbon Dioxide 25 Anion Gap 4 BUN 15 D Creatinine 1.00 Estim Creat Clear Calc Not Reportable Estimated GFR 53 L Glucose 88 POC Capillary Glucose 74 79 Calcium 9.0 Iron 14 L TIBC 377 % Saturation 4 L Total Bilirubin 0.4 AST 18 ALT 11 Alkaline Phosphatase 53 Total Protein 6.0 L Albumin 3.5 10/05/23 10/05/23 07:32 11:20 WBC RBC Hgb Hct MCV MCH MCHC RDW Plt Count MPV Immature Gran % (Auto) Neut % (Auto) Lymph % (Auto) [place] % (Auto) Eos % (Auto) Baso % (Auto) Lymph # (Auto) [place] # (Auto
--- NOTE | 2023-10-11 07:34 | PC.NURSE ---
H. pylori is negative.
== END 2023-10-05 14:05 | disposition home or self-care (01) ==
LOC: ANHED 20:04 → ANH3MEDSUR 21:08
PROVIDERS: Family Medicine; Internal Medicine Gastroenterology; Nurse Practitioner Family; Admitting Provider Internal Medicine; Emergency Provider Physician Assistant; PCP Family Medicine; Visit Provider Internal Medicine
PROC: 0DJ08ZZ Inspection of Upper Intestinal Tract, Via Natural or Artificial Opening Endoscopic (ICD-10-PCS; CPT 43235; principal; 2023-10-04 15:00)
DX: K92.2 Gastrointestinal hemorrhage, unspecified (principal); K29.50 Unspecified chronic gastritis without bleeding; D62 Acute posthemorrhagic anemia; R10.13 Epigastric pain; I10 Essential (primary) hypertension; E78.5 Hyperlipidemia, unspecified; E11.9 Type 2 diabetes mellitus without complications; H40.9 Unspecified glaucoma; N32.81 Overactive bladder; F32.A Depression, unspecified; K21.9 Gastro-esophageal reflux disease without esophagitis; Z86.73 Personal history of transient ischemic attack (TIA), and cerebral infarction without residual deficits; Z79.02 Long term (current) use of antithrombotics/antiplatelets; Z79.84 Long term (current) use of oral hypoglycemic drugs
CPT/HCPCS: 43239; 36415; 74177; 80053; 82948; 83540; 83550; 85014; 85018; 85025; 85610; 85730; 87081; 88305; 88342; 96361; 96374; 99285; A9270; C9113; G0378; G0379; J2704; J7030; J7120; Q9967